=== PATIENT | male | born 1930 | race Caucasian/White ===

== ENCOUNTER → 2019-07-17 | Outpatient (CLI) | payer OTHER | LOC: HYPER 07:29 | DX: L89.313 Pressure ulcer of right buttock, stage 3 (principal); I69.354 Hemiplegia and hemiparesis following cerebral infarction affecting left non-dominant side; I25.9 Chronic ischemic heart disease, unspecified; I10 Essential (primary) hypertension; L29.0 Pruritus ani; E78.00 Pure hypercholesterolemia, unspecified; R73.03 Prediabetes; R73.09 Other abnormal glucose; R26.2 Difficulty in walking, not elsewhere classified; B36.9 Superficial mycosis, unspecified; G45.9 Transient cerebral ischemic attack, unspecified ==